=== PATIENT | male | born 1970 | race Caucasian/White ===

== ENCOUNTER 2024-03-04 10:27 | Emergency (ER) | payer OTHER ==
[~2024-03-04] VITALS: Ht 193 cm; Wt 99.7 kg
[~2024-03-04 10:27] MED LIST: ALLERGY NA50 MCG/ACT; NORVASC5 M1 PO; OMEPRAZOLE PO
[2024-03-04] MEDS ORDERED: LIDOcaine HCl 1% (Local Anesth.) 20 ML VIAL IM STA (11:11)
[2024-03-04] MEDS ORDERED: METRONIDAZOLE500 MG PO (11:12)
[2024-03-04] MEDS ORDERED: AMOX/K CLAV875 M1 PO (11:12)
[2024-03-04] MEDS ORDERED: cefTRIAXone SODIUM 2 GM/VIAL SDV IM ONE (11:15)
[2024-03-04] MEDS ORDERED: ACETAMINOPHEN 500 MG TAB PO ONE (11:15)
[2024-03-04] MEDS ORDERED: KETOROLAC TROMETHAMINE 30 MG/ML SDV IM ONE (11:15)
== END 2024-03-04 11:54 | disposition home or self-care (01) | DRG 159 ==
LOC: ED 10:27
DX: K08.89 Other specified disorders of teeth and supporting structures (principal); I10 Essential (primary) hypertension; Z72.0 Tobacco use